=== PATIENT | male | born 1940 | race Caucasian/White ===

== ENCOUNTER 2021-11-04 09:30 | Outpatient (CLI) | payer MEDICARE, BC ==
[2021-11-01 11:01] VITALS: BMI 25.4
[2021-11-04] MEDS ORDERED: PROPOFOL 200 MG/20 ML VIAL ONE (15:51)
[2021-11-04] MEDS ORDERED: PHENYLEPHRINE-NS 100 MCG/ML 10 ML SYRINGE ONE (15:51)
[2021-11-04] MEDS ORDERED: ePHEDrine 50 MG/ML VIAL ONE (15:51)
[2021-11-04] MEDS ORDERED: Dexamethasone 20 MG/5 ML VIAL ONE (15:51)
== END 2021-11-04 15:25 | disposition home or self-care (01) ==
LOC: MRI 09:30
PROVIDERS: ATTEND Neurological Surgery
DX: R25.1 Tremor, unspecified (principal); M47.815 Spondylosis without myelopathy or radiculopathy, thoracolumbar region; M47.816 Spondylosis without myelopathy or radiculopathy, lumbar region; M51.36 Other intervertebral disc degeneration, lumbar region; M51.37 Other intervertebral disc degeneration, lumbosacral region; M47.817 Spondylosis without myelopathy or radiculopathy, lumbosacral region; M48.07 Spinal stenosis, lumbosacral region; M48.061 Spinal stenosis, lumbar region without neurogenic claudication; M71.38 Other bursal cyst, other site; M47.814 Spondylosis without myelopathy or radiculopathy, thoracic region; M47.813 Spondylosis without myelopathy or radiculopathy, cervicothoracic region; M47.812 Spondylosis without myelopathy or radiculopathy, cervical region
CPT/HCPCS: 70551; 72141; 72146; 72148; J1100; J2704; J3490